=== PATIENT | male | born 1995 | race Caucasian/White ===

== ENCOUNTER 2017-11-12 10:25 | Emergency (ER) | payer SELFPAY ==
[~2017-11-12 10:25] MED LIST: CEPHALEXIN500 M2 PO; NORCO 325 MG-51 TA1 PO; RITALIN LA20 MG PO
[2017-11-12] MEDS ORDERED: NORCO 325 MG-51 TA1 PO (11:09)
[2017-11-12 11:27] VITALS: BP 136/84
== END 2017-11-12 11:39 | disposition home or self-care (01) ==
LOC: ED 10:25
DX: S05.02XA Injury of conjunctiva and corneal abrasion without foreign body, left eye, initial encounter (principal); W22.8XXA Striking against or struck by other objects, initial encounter

== ENCOUNTER 2021-12-21 17:11 | Emergency (ER) | payer SELFPAY ==
[~2021-12-21] VITALS: Ht 175.3 cm; Wt 77.3 kg
[2021-12-21 18:20] VITALS: BP 145/98
== END 2021-12-21 18:10 | disposition home or self-care (01) ==
LOC: ED 17:11
DX: M25.571 Pain in right ankle and joints of right foot (principal); Z28.310 Unvaccinated for COVID-19; W20.8XXA Other cause of strike by thrown, projected or falling object, initial encounter
CPT/HCPCS: L4386

== ENCOUNTER 2022-10-24 12:51 | Emergency (ER) | payer SELFPAY ==
[2022-10-24 13:07] VITALS: BP 148/90
[2022-10-24] MEDS ORDERED: KETOROLAC10 MG PO (14:23)
== END 2022-10-24 14:28 | disposition home or self-care (01) ==
LOC: ED 12:51
DX: S93.602A Unspecified sprain of left foot, initial encounter (principal); Z28.310 Unvaccinated for COVID-19; X50.1XXA Overexertion from prolonged static or awkward postures, initial encounter
CPT/HCPCS: J1885

== ENCOUNTER 2022-12-14 08:00 | Outpatient (RCR) | payer OTHER ==
[~2022-12-14 08:00] MED LIST changes: +KETOROLAC10 MG PO
== END 2023-01-12 | disposition home or self-care (01) ==
LOC: PT
DX: S46.011D Strain of muscle(s) and tendon(s) of the rotator cuff of right shoulder, subsequent encounter (principal); X58.XXXD Exposure to other specified factors, subsequent encounter

== ENCOUNTER 2023-04-30 17:25 | Emergency (ER) | payer SELFPAY ==
[~2023-04-30] VITALS: Ht 172.7 cm; Wt 88.2 kg
[2023-04-30 18:56] VITALS: BP 129/83
== END 2023-04-30 18:57 | disposition home or self-care (01) ==
LOC: ED 17:25
DX: S61.211A Laceration without foreign body of left index finger without damage to nail, initial encounter (principal); W26.0XXA Contact with knife, initial encounter

== ENCOUNTER → 2023-11-09 | Outpatient (REF) | payer BC | LOC: LAB 13:33 | DX: J06.9 Acute upper respiratory infection, unspecified (principal); Z20.822 Contact with and (suspected) exposure to COVID-19 ==